=== PATIENT | female | born 1985 | race Caucasian/White ===

== ENCOUNTER → 2018-07-18 | Outpatient (CLI) | payer BC, OTHER ==
--- NOTE | 2018-07-18 18:22 | Diagnostic Imaging Report ---
EXAMINATION: Digital mammogram bilateral diagnostic with 3D tomosynthesis and computer-aided detection (CAD) system. INDICATION: Breast lump. COMPARISON: There are no prior studies available for comparison. This is the patient's baseline exam. FINDINGS: At this time, the patient does complain of a lump in the 12 o'clock position of the right breast. A marker was placed over the area of concern. There is no primary or secondary sign of malignancy noted. However, the fibroglandular tissue in the right breast is extremely dense and could mask a lesion. I would recommend that ultrasound be performed for further study. The fibroglandular tissue in the left breast is also quite dense. There is no primary or secondary sign of malignancy noted. IMPRESSION: There is no evidence of malignancy. Ultrasound would be recommended for further study, however. ACR BI-RADS Category 0: Incomplete. (Needs additional imaging evaluation). Result letter will be mailed to the patient. Note: At least 10% of breast cancer is not imaged by mammography. Dictated by: Dictated on workstation # [id number]
--- NOTE | 2018-07-18 18:27 | Diagnostic Imaging Report ---
EXAMINATION: Ultrasound of the right breast. INDICATION: Right breast mass. FINDINGS: The diagnostic mammogram performed earlier today failed to show any discrete mass in the area of the patient's palpable abnormality in the 12-1 o'clock position of the right breast. On this exam, however, there does appear to be a small 1.6 x 1.5 x 2.0 cm well-circumscribed solid lesion with internal vascularity. In a patient of this age, I suspect that this is a benign process such as a fibroadenoma. Even so, I would recommend that an ultrasound-guided biopsy be performed to establish a tissue diagnosis. No other abnormality is identified. IMPRESSION: 1. There is a small solid mass in the area of the patient's palpable abnormality. Most likely, this is a benign process such as a fibroadenoma. Recommendations as above. 2. These results were discussed with Keila Roman APRN at the time of this dictation. ACR BI-RADS Category 4: Suspicious abnormality. CRITICAL FINDING Dictated by: Dictated on workstation # [id number]
== END ==
LOC: RAD 09:07
PROVIDERS: ATTEND Nurse Practitioner Primary Care
DX: N63.10 Unspecified lump in the right breast, unspecified quadrant (principal)
CPT/HCPCS: 77066

== ENCOUNTER → 2018-07-30 | Outpatient (CLI) | payer BC, OTHER ==
[~2018-07-30] VITALS: Ht 157.5 cm; Wt 56.7 kg
[2018-07-30] MEDS: LIDOCAINE 1% INJ 20 ML 20 ML VIAL INJ ONE (11:13)
--- NOTE | 2018-07-30 11:58 | Diagnostic Imaging Report ---
INDICATION: Right breast mass. Patient presents for ultrasound guided biopsy. PROCEDURE: Patient was brought to the procedure room and placed on the table in the supine position. Ultrasound imaging of the right breast was performed to evaluate appropriate entry site. The right breast was then prepped and draped in usual sterile fashion. Small amount of 1% lidocaine was utilized for local anesthesia. A total of three core biopsies were made through the solid hypoechoic mass at the 12:30 location of the right breast, 2 cm from the nipple utilizing a 14-gauge Achieve needle. Next, a marker clip was deployed. Hemostasis was obtained using manual compression. Patient tolerated the procedure well and was sent for post procedure mammogram in satisfactory condition. IMPRESSION: Successful ultrasound-guided core biopsy of the solid mass at the 12:30 location of the right breast. Pathology results are currently pending. Dictated by: Dictated on workstation # [id number]
--- NOTE | 2018-07-30 13:38 | Diagnostic Imaging Report ---
INDICATION: Right breast mass, status post ultrasound-guided biopsy and clip placement. FINDINGS: Two view mammography demonstrates a clip in the upper aspect of the right breast at mid depth. The right breast is dense. No suspicious calcifications are seen. IMPRESSION: Clip placement. Pathology results are pending. Dictated by: Dictated on workstation # [id number]
== END ==
LOC: RAD 10:17
PROVIDERS: ATTEND Nurse Practitioner Primary Care
DX: D24.1 Benign neoplasm of right breast (principal); N63.10 Unspecified lump in the right breast, unspecified quadrant
CPT/HCPCS: 19083; 88305

== ENCOUNTER 2018-08-14 19:18 | Emergency (ER) | payer BC ==
[~2018-08-14] VITALS: Ht 167.6 cm; Wt 113.4 kg
[2018-08-14 19:57] LABS: BASOPHILS % (AUTO) 0 % (0-10); EOSINOPHILS # (AUTO) 0.2 10^3/uL (0.0-0.3); EOSINOPHILS % (AUTO) 2 % (0-10); HEMATOCRIT 40 % (35-52); HEMOGLOBIN 13.3 G/DL (11.5-16.0); LYMPHOCYTES % (AUTO) 32 % (12-44); MEAN CORPUSCULAR HEMOGLOBIN 28 PG (25-34); MEAN CORPUSCULAR HGB CONC 34 G/DL (32-36); MEAN CORPUSCULAR VOLUME 85 FL (80-99); MEAN PLATELET VOLUME 10.2 FL (7.4-10.4); MONOCYTES # (AUTO) 0.6 X 10^3 (0.0-1.0); MONOCYTES % (AUTO) 7 % (0-12); NEUTROPHILS # (AUTO) 5.5 X 10^3 (1.8-7.8); NEUTROPHILS % (AUTO) 58 % (42-75); PLATELET COUNT 326 10^3/uL (130-400); RED CELL DISTRIBUTION WIDTH 14.6 % (10.0-14.5); WHITE BLOOD COUNT 9.3 10^3/uL (4.3-11.0)
[2018-08-14 20:01] LABS: BILIRUBIN,URINE NEGATIVE (NEGATIVE); CLARITY,URINE SLIGHTLY CLOUDY; COLOR,URINE YELLOW; GLUCOSE, URINE (UA) NEGATIVE (NEGATIVE); KETONES,URINE NEGATIVE (NEGATIVE); LEUKOCYTE ESTERASE ,URINE 1+ (NEGATIVE); NITRITE,URINE NEGATIVE (NEGATIVE); PH,URINE 8 (5-9); PROTEIN,URINE NEGATIVE (NEGATIVE); UROBILINOGEN,URINE 1 MG/DL (NORMAL)
[2018-08-14 20:10] LABS: BACTERIA,URINE TRACE /HPF; WBC,URINE 0-2 /HPF
[2018-08-14 20:19] LABS: ALANINE AMINOTRANSFERASE 39 U/L (0-55); ALBUMIN 4.5 GM/DL (3.2-4.5); ALKALINE PHOSPHATASE 52 U/L (40-136); AMYLASE 35 U/L (25-125); BILIRUBIN,TOTAL 1.2 MG/DL (0.1-1.0); BUN/CREATININE RATIO 18; CALCIUM 9.1 MG/DL (8.5-10.1); CARBON DIOXIDE 20 MMOL/L (21-32); CHLORIDE 108 MMOL/L (98-107); CREATININE SERUM 0.71 MG/DL (0.60-1.30); GFR ESTIMATED > 60; GLUCOSE 90 MG/DL (70-105); LIPASE 34 U/L (8-78); POTASSIUM 4.1 MMOL/L (3.6-5.0); SODIUM 142 MMOL/L (135-145); TOTAL PROTEIN 8.1 GM/DL (6.4-8.2)
[2018-08-14] MEDS ORDERED: IOHEXOL 350 MG/ML 150 ML (OMNIPAQUE 350) VIAL IV ONE (20:45)
[2018-08-14] MEDS ORDERED: NS IV 1000 ML 1,000 ML IV SCH (20:45)
[2018-08-14] MEDS ORDERED: ONDANSETRON 4 MG/2 ML (SDV) Z0FRAN IVP ONE (20:45)
[2018-08-14] MEDS ORDERED: HOLD METFORMIN - RECEIVED CONTRAST 20 ML VIAL IV SCH (20:45)
--- NOTE | 2018-08-14 21:19 | Diagnostic Imaging Report ---
PROCEDURE: CT abdomen and pelvis with contrast. TECHNIQUE: Multiple contiguous axial images were obtained through the abdomen and pelvis after administration of intravenous contrast. Auto Exposure Controls were utilized during the CT exam to meet ALARA standards for radiation dose reduction. INDICATION: Left flank pain. FINDINGS: The lung bases are clear. Kidneys show no evidence of calculi. There is no hydronephrosis. There is symmetrical nephrogram effect following IV contrast. Delayed images show normal opacification of the renal collecting system. Both ureters appear normal. There is contrast in the bladder which appears normal and decompressed. There are no pelvic masses. Uterus appears normal. Ovaries are not enlarged. There is no free air or free fluid. The liver shows mild fatty change. Gallbladder and bile ducts are normal. The pancreas and spleen are normal. The adrenal glands are normal. There is good opacification of the aorta and abdominal vessels which appear normal. Stomach and small bowel are not distended. The colon shows normal stool and gas pattern. The appendix is normal. The terminal ileum is normal. No evidence of diverticulitis. No evidence of constipation or bowel obstruction. There are no bony lesions. There is noted a small periumbilical hernia just above the umbilicus containing some intra-abdominal fat. IMPRESSION: 1. Normal-appearing kidneys, ureter and bladder. 2. Bowel appears normal throughout. 3. There is a small periumbilical hernia just above the umbilicus containing some intra-abdominal fat. Dictated by: Dictated on workstation # [id number]
[2018-08-14] MEDS ORDERED: RX-HYOSCYAMINE 0.125 MG SL (LEVSIN) PPK#6 SL STA (21:32)
[2018-08-14] MEDS ORDERED: RX-ONDANSETRON 4 MG ODT (ZOFRAN) PPK #4 PO STA (21:32)
[2018-08-14] MEDS ORDERED: ONDA4TAB11 PO (21:38)
[2018-08-14] MEDS ORDERED: HYOS0.1283 SL (21:38)
--- NOTE | 2018-08-14 21:38 | ED Abdominal Pain ---
General Chief Complaint: Abdominal/GI Problems Stated Complaint: PAIN IN ABD,VOMITTING,BLOOD IN STOOL Nursing Triage Note: PT ARRIVED POV WITH C/O LEFT SIDE ABD PAIN X3 DAYS. TODAY PAIN IS MUCH MORE SEVERE WITH VOMITING. PT HAS HX OF ECTOPIC PREGNACY. PT ALSO C/O BLOOD IN STOOL Sepsis Screen: No Definite Risk Source of Information: Patient Exam Limitations: No Limitations History of Present Illness Date Seen by Provider: Aug 14, 2018 Time Seen by Provider: 19:30 Initial Comments 29-year-old female who presents to the emergency room with complaints of abdominal cramping to the left lower quadrant area, nausea, vomiting, diarrhea for the past 3 days. She's also had small amounts of blood in her stool for the past 2 days. Reports chills but is unsure if she's ran a fever. Allergies and Home Medications Allergies Coded Allergies: Penicillins (Verified Allergy, Unknown, 07/30/18) Home Medications Hyoscyamine Sulfate 0.125 Mg Tab.subl, 0.125 MG SL Q4H Prescribed by: LUDY GUTIERREZ on 08/14/182137 Ondansetron 4 Mg Tab.rapdis, 4 MG PO Q4H Prescribed by: LUDY GUTIERREZ on 08/14/182137 Past Uxitdem-Iximld-Wjqvcw Hx Patient Social History Alcohol Use: Denies Use Recreational Drug Use: No Smoking Status: Never a Smoker 2nd Hand Smoke Exposure: No Recent Foreign Travel: No Contact w/Someone Who Travel: No Recent Infectious Disease Expo: No Recent Hopitalizations: No Seasonal Allergies Seasonal Allergies: No Past Medical History Surgeries: Yes (D&C) Tonsillectomy Respiratory: No Cardiac: No Neurological: No Hx : 3 Hx Para: 2 Hx Total # of Abortions (Sp): 1 Sexually Transmitted Disease: No Genitourinary: No Gastrointestinal: No Musculoskeletal: No Endocrine: Yes Hypothyroidsim HEENT: No Cancer: No Psychosocial: No Integumentary: No Blood Disorders: Yes (ANEMIA) Adverse Reaction/Blood Tranf: No Physical Exam Vital Signs Vital Signs - First Documented 08/14/18 08/14/18 19:24 22:08 Temp 98.7 Pulse 85 Resp 20 B/P (MAP) 109/66 (80) Pulse Ox 99 O2 Delivery Room Air Capillary Refill : Less Than 3 Seconds Height/Weight/BMI Height: 5'6.00" Weight: 250lbs. 0.0oz. 113.479627um; 22.9 BMI Method:Stated Progress/Results/Core Measures Results/Orders Lab Results Laboratory Tests Test 08/14/18 19:47 08/14/18 19:55 Range/Units White Blood Count 9.3 4.3-11.0 10^3/uL Red Blood Count 4.68 4.35-5.85 10^6/uL Hemoglobin 13.3 11.5-16.0 G/DL Hematocrit 40 35-52 % Mean Corpuscular Volume 85 80-99 FL Mean Corpuscular Hemoglobin 28 25-34 PG Mean Corpuscular Hemoglobin Concent 34 32-36 G/DL Red Cell Distribution Width 14.6 H 10.0-14.5 % Platelet Count 326 130-400 10^3/uL Mean Platelet Volume 10.2 7.4-10.4 FL Neutrophils (%) (Auto) 58 42-75 % Lymphocytes (%) (Auto) 32 12-44 % Monocytes (%) (Auto) 7 0-12 % Eosinophils (%) (Auto) 2 0-10 % Basophils (%) (Auto) 0 0-10 % Neutrophils # (Auto) 5.5 1.8-7.8 X 10^3 Lymphocytes # (Auto) 3.0 1.0-4.0 X 10^3 Monocytes # (Auto) 0.6 0.0-1.0 X 10^3 Eosinophils # (Auto) 0.2 0.0-0.3 10^3/uL Basophils # (Auto) 0.0 0.0-0.1 10^3/uL Sodium Level 142 135-145 MMOL/L Potassium Level 4.1 3.6-5.0 MMOL/L Chloride Level 108 H 98-107 MMOL/L Carbon Dioxide Level 20 L 21-32 MMOL/L Anion Gap 14 5-14 MMOL/L Blood Urea Nitrogen 13 7-18 MG/DL Creatinine 0.71 0.60-1.30 MG/DL Estimat Glomerular Filtration Rate > 60 BUN/Creatinine Ratio 18 Glucose Level 90 70-105 MG/DL Calcium Level 9.1 8.5-10.1 MG/DL Corrected Calcium 8.7 8.5-10.1 MG/DL Total Bilirubin 1.2 H 0.1-1.0 MG/DL Aspartate Amino Transf (AST/SGOT) 39 H 5-34 U/L Alanine Aminotransferase (ALT/SGPT) 39 0-55 U/L Alkaline Phosphatase 52 40-136 U/L Total Protein 8.1 6.4-8.2 GM/DL Albumin 4.5 3.2-4.5 GM/DL Amylase Level 35 25-125 U/L Lipase 34 8-78 U/L Urine Color YELLOW Urine Clarity SLIGHTLY CLOUDY Urine pH 8 5-9 Urine Specific [place] 1.015 L 1.016-1.022 Urine Protein NEGATIVE NEGATIVE Urine Glucose (UA) NEGATIVE NEGATIVE Urine Ketones NEGATIVE NEGATIVE Urine Nitrite NEGATIVE NEGATIVE Urine Bilirubin NEGATIVE NEGATIVE Urine Urobilinogen 1 NORMAL MG/DL Urine Leukocyte Esterase 1+ H NEGATIVE Urine RBC (Auto) NEGATIVE NEGATIVE Urine RBC NONE /HPF Urine WBC 0-2 /HPF Urine Squamous Epithelial Cells 5-10 /HPF Urine Crystals NONE /LPF Urine Bacteria TRACE /HPF Urine Casts NONE /LPF Urine Mucus LARGE H /LPF Urine Culture Indicated NO Urine Test NEGATIVE NEGATIVE My Orders Orders - LUDY GUTIERREZ Ua Culture If Indicated (08/14/18 19:25) Hcg,Qualitative Urine (08/14/18 19:34) Comprehensive Metabolic Panel (08/14/18 19:34) Lipase (08/14/18 19:34) Amylase (08/14/18 19:34) Saline Lock/Iv-Start (08/14/18 19:34) Cbc With Automated Diff (08/14/18 19:34) Ct Abdomen/Pelvis W (08/14/18 20:30) Ondansetron Injection (Zofran Injectio (08/14/18 20:45) Ns Iv 1000 Ml (Sodium Chloride 0.9%) (08/14/18 20:45) Iohexol Injection (Omnipaque 350 Mg/Ml 1 (08/14/18 20:45) Received Contrast (Hold Metformin- Contr (08/14/18 20:45) Rx-Hyoscyamine Tab (Rx-Levsin Sl) (08/14/18 21:32) Rx-Ondansetron Po (Rx-Zofran Po) (08/14/18 21:32) Medications Given in ED Vital Signs/I&O 08/14/18 08/14/18 19:24 22:08 Temp 98.7 98.7 Pulse 85 86 Resp 20 17 B/P (MAP) 109/66 (80) Pulse Ox 99 99 O2 Delivery Room Air Room Air Departure Impression Primary Impression: Nausea vomiting and diarrhea Disposition: 01 HOME, SELF-CARE Condition: Stable/Unchanged Departure-Patient Inst. Decision time for Depature: 21:35 Referrals: [facility] (PCP) Primary Care Physician GILBERT RUSSELL APRN (Family) Primary Care Physician Patient Instructions: [id number] Add. Discharge Instructions: Take medication as directed. Clear liquid diet for 48 hours and advance to a bland diet as tolerated. Keep your appointment as scheduled with your primary care provider to follow-up, if your symptoms should resolve you can cancel it. Return back to the emergency room for worsening symptoms or concerns as needed. All discharge instructions reviewed with patient and/or family. Voiced understanding. Scripts Hyoscyamine Sulfate (Levsin-Sl) 0.125 Mg Tab.subl 0.125 MG SL Q4H, #14 TAB Prov: LUDY GUTIERREZ 08/14/18 Ondansetron (Ondansetron Odt) 4 Mg Tab.rapdis 4 MG PO Q4H, #14 TAB Prov: LUDY GUTIERREZ 08/14/18 LUDY GUTIERREZ Aug 14, 2018 21:38
[2018-08-14 22:08] VITALS: BP 109/66
== END 2018-08-14 22:08 | disposition home or self-care (01) ==
LOC: EDUNIT# 19:18 → EDBD 19:20 → ER 19:20
DX: R11.2 Nausea with vomiting, unspecified (principal); R19.7 Diarrhea, unspecified; E03.9 Hypothyroidism, unspecified; D64.9 Anemia, unspecified; Z88.0 Allergy status to penicillin; Z90.89 Acquired absence of other organs
CPT/HCPCS: 36415; 74177; 80053; 81000; 82150; 83690; 84703; 85025

== ENCOUNTER 2018-10-31 11:51 | Emergency (ER) | payer BC, OTHER ==
[~2018-10-31] VITALS: Ht 154.9 cm; Wt 56.7 kg
[~2018-10-31 11:51] MED LIST: HYOS0.1283 SL; ONDA4TAB11 PO
[2018-10-31] MEDS ORDERED: CLOB15CR2 TP (11:57)
--- NOTE | 2018-10-31 11:57 | ED Integumentary General ---
General Stated Complaint: POISON JOLIE SHOT Source: patient Exam Limitations: no limitations History of Present Illness Date Seen by Provider: Oct 31, 2018 Time Seen by Provider: 11:53 Initial Comments to ER with poison jolie to the volar surface of the right wrist, new Lesions popping up every day to the left arm and right leg. This began one week ago. Timing/Duration: week, getting worse Severity: moderate Associated Symptoms: other (itching) Allergies and Home Medications Allergies Coded Allergies: Penicillins (Verified Allergy, Unknown, 07/30/18) Home Medications Hyoscyamine Sulfate 0.125 Mg Tab.subl, 0.125 MG SL Q4H Prescribed by: LUDY GUTIERREZ on 08/14/182137 Ondansetron 4 Mg Tab.rapdis, 4 MG PO Q4H Prescribed by: LUDY GUTIREREZ on 08/14/182137 Patient Home Medication List Home Medication List Reviewed: Yes Review of Systems Review of Systems Constitutional: see HPI EENTM: see HPI Respiratory: no symptoms reported Cardiovascular: no symptoms reported Genitourinary: no symptoms reported Musculoskeletal: no symptoms reported Skin: see HPI Psychiatric/Neurological: No Symptoms Reported Endocrine: No Symptoms Reported Past Qyhnsiw-Rkbuhc-Nqhiot Hx Patient Social History Recent Foreign Travel: No Contact w/Someone Who Travel: No Physical Exam Vital Signs Capillary Refill : General Appearance: WD/WN, no apparent distress HEENT: PERRL/EOMI, normal ENT inspection Neck: non-tender, full range of motion Respiratory: no respiratory distress, no accessory muscle use Neurologic/Psychiatric: alert, normal mood/affect, oriented x 3 Skin: normal color, warm/dry Skin Problem Character: other (erythematous elevated patch to the right volar wrist with some unruptured and ruptured vesicles to this area, several smaller linear papulovesicular lesions that are erythematous and pruritic to the volar surface of the left forearm) Departure Impression Primary Impression: Rhus dermatitis Disposition: 01 HOME, SELF-CARE Condition: Stable Departure-Patient Inst. Decision time for Depature: 11:55 [facility]errals: [facility] [place] Primary Care Physician GILBERT RUSSELL APRN (Family) Primary Care Physician Patient Instructions: Dermatitis, Poison Jolie Add. Discharge Instructions: 1. Applied the topical steroid twice daily for 5 days to the lesions. Return to ER for any concerns. Benadryl may help make you sleepy at bedtime which will make it easier to ignore the itching. Scripts Clobetasol Propionate (Clobetasol Propionate) 15 Gm Cream..g. 15 GM TP BID for 5 Days, #1 TUBE Apply to the poison jolie lesions twice daily for 5 days Prov: CASEY ZAMBRANO APRN 10/31/18 CASEY ZAMBRANO APRN Oct 31, 2018 11:57
[2018-10-31] MEDS ORDERED: TRIAMCINOLONE ACET (KENALOG-40) 40 MG/ML 1 ML VIAL IM ONE (12:00)
[2018-10-31] MEDS ORDERED: BETAMETHASONE ACE/NA PHOS 6 MG/ML (CELESTONE SOLUSPAN) IM ONE (12:00)
[2018-10-31 12:15] VITALS: BP 126/84
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
== END 2018-10-31 12:15 | disposition home or self-care (01) ==
LOC: EDUNIT# 11:51 → ER 11:52
DX: L23.7 Allergic contact dermatitis due to plants, except food (principal); Z88.0 Allergy status to penicillin
CPT/HCPCS: 96372; 99284

== ENCOUNTER 2020-02-10 12:34 | Emergency (ER) | payer BC, OTHER ==
[~2020-02-10] VITALS: Ht 158 cm; Wt 58.9 kg
[~2020-02-10 12:34] MED LIST changes: +CLOB15CR2 TP
--- NOTE | 2020-02-10 13:17 | ED Neurological Problem ---
General Chief Complaint: Upper Extremity Stated Complaint: NUMBNESS/TINGLING R ARM Nursing Triage Note: PT REPORTS INTERMITTENT TINGLING/BURING SINCE DAY WEEKEND. PT REPORTS SHE WAS SITTING AT HER DESK TYPING AND NOTICED HER HAND WAS NUMB AND TINGLY AND IT WAS DIFFICULTY TO TYPE. PT ALSO REPORTS NECK PAIN FOR A FEW WEEKS. Nursing Sepsis Screen: No Definite Risk Source: patient Exam Limitations: no limitations History of Present Illness Date Seen by Provider: Feb 10, 2020 Time Seen by Provider: 12:35 Initial Comments This 34-year-old woman presents to the emergency room with complaints of numbness, tingling, and weakness of her right upper extremity. This was first noticed nearly 3 weeks ago in her hand. It has since progressed up the extremity and now today involves the shoulder and right lateral neck. She has weakness measurable on exam throughout the right upper extremity. She has no other neurologic symptoms. She was seen at the [facility] walk-in clinic a few days ago and started on prednisone which has not improved her symptoms. She denies any injury. She has had no prior episodes. Allergies and Home Medications Allergies Coded Allergies: Penicillins (Verified Allergy, Unknown, 07/30/18) Home Medications Clobetasol Propionate 15 Gm Cream..g., 15 GM TP BID Apply to the poison naida lesions twice daily for 5 days Prescribed by: CASEY ZAMBRANO on 10/31/18 1157 Gabapentin 300 Mg Capsule, 300 MG PO TID PRN for PAIN-BREAKTHROUGH Prescribed by: CHERISE HAND on 02/10/20 1518 Hyoscyamine Sulfate 0.125 Mg Tab.subl, 0.125 MG SL Q4H Prescribed by: LUDY GUTIERREZ on 08/14/182137 Ondansetron 4 Mg Tab.rapdis, 4 MG PO Q4H Prescribed by: LUDY GUTIERREZ on 08/14/182137 Patient Home Medication List Home Medication List Reviewed: Yes Review of Systems Review of Systems Constitutional: no symptoms reported Eyes: No Symptoms Reported Ears, Nose, Mouth, Throat: no symptoms reported Respiratory: no symptoms reported Cardiovascular: no symptoms reported Gastrointestinal: no symptoms reported Genitourinary: no symptoms reported : No Musculoskeletal: see HPI Past Tmxedbv-Pkkuyn-Ttpnsd Hx Past Med/Social Hx: Reviewed Nursing Past Med/Soc Hx Patient Social History Alcohol Use: Occasionally Uses Recreational Drug Use: No Smoking Status: Never a Smoker 2nd Hand Smoke Exposure: No Recent Foreign Travel: No Contact w/Someone Who Travel: No Recent Infectious Disease Expo: No Recent Hopitalizations: No Physical Abuse: No Sexual Abuse: No Mistreated: No Fear: No Immunizations Up To Date PED Vaccines UTD: Yes Seasonal Allergies Seasonal Allergies: No Past Medical History Surgeries: Yes Adenoidectomy, Appendectomy, Tonsillectomy Respiratory: No Cardiac: No Neurological: No Genitourinary: No Gastrointestinal: No Musculoskeletal: No Endocrine: No HEENT: No Cancer: No Psychosocial: No Integumentary: No Blood Disorders: No Physical Exam Vital Signs Vital Signs - First Documented 02/10/20 12:37 Temp 36.5 Pulse 92 Resp 20 B/P (MAP) 135/85 (102) Pulse Ox 98 Capillary Refill : Less Than 3 Seconds Height, Weight, BMI Height: 5'1.00" Weight: 125lbs. 0.0oz. 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, alert, normal mood/affect, oriented x 3, motor weakness (4/5 weakness throughout the right upper extremity.) Crainal Nerves: normal hearing, normal speech, PERRL, abnormal eye position Coordination/Gait: normal finger to nose, normal gait Skin: normal color, warm/dry Progress/Results/Core Measures Results/Orders My Orders Orders - CHERISE JONES MD Mri Brain W/O Contrast (02/10/20 12:55) Mri Cervical Spine W/O Contras (02/10/20 12:55) Vital Signs/I&O 02/10/20 02/10/20 12:37 15:25 Temp 36.5 Pulse 92 87 Resp 20 18 B/P (MAP) 135/85 (102) 123/70 Pulse Ox 98 98 Blood Pressure Mean: 102 Progress Progress Note : Progress Note Patient was seen and examined. She was noted to have measurable weakness throughout the musculature of the right upper extremity. MRI of the head and cervical spine was obtained. There is a tiny punctate lesion in the cervical spine but no other abnormalities were found. The significance of this is uncertain. Case was discussed with Dr. Oh. Further workup is warranted in the outpatient setting which might include EMG and neurology referral. In the meantime, patient is being prescribed Neurontin for pain management. I reviewed the case with Dr. Dawn who will help facilitate expediting outpatient workup. Patient has a follow-up appointment on Monday. Diagnostic Imaging Diagonstic Imaging: MRI Plain Films/CT/US/NM/MRI: head Comments NAME: TRUONG PULIDO [facility] REC#: [id number] PT STATUS: DEP ER : 1985 PHYSICIAN: CHERISE JONES MD ADMIT DATE: 02/10/20/ER Signed Date of Exam:02/10/20 MRI BRAIN W/O CONTRAST PROCEDURE: MR imaging of the brain without contrast. TECHNIQUE: Multiplanar, multisequence MR imaging of the brain was performed without contrast. INDICATION: Right arm weakness and paresthesia. FINDINGS: The ventricles and sulci are within normal limits for size. The douglas and white matter signal intensities are unremarkable. There is no abnormal mass effect or shift of the midline structures. There is no restricted diffusion to indicate an infarct. Flow voids are seen in the expected locations at the skull base. There is no MRI evidence of hemorrhage. The visualized paranasal sinuses are clear. IMPRESSION: Unremarkable MRI of the brain. Dictated by: Dictated on workstation # [id number] Dict: 02/10/20 1333 Trans: 02/10/20 1609 [id number] Interpreted by: MARLENE CHRISTIANSEN MD Electronically signed by: MARLENE CHRISTIANSEN MD 02/10/20 1609 Diagonstic Imaging: MRI Plain Films/CT/US/NM/MRI: c-spine Comments NAME: TRUONG PULIDO [facility] REC#: [id number] PT STATUS: DEP ER : 1985 PHYSICIAN: CHERISE JONES MD ADMIT DATE: 02/10/20/ER Signed Date of Exam:02/10/20 MRI CERVICAL SPINE W/O CONTRAS PROCEDURE: MR imaging cervical spine without contrast. TECHNIQUE: Multiplanar, multisequence MR imaging of the cervical spine was performed without contrast. INDICATION: Right arm weakness and numbness. COMPARISON: No prior studies are available for comparison. FINDINGS: There is normal alignment to the cervical spine. Vertebral body marrow signal is unremarkable. The cervical discs demonstrate fairly normal height and signal intensity. No focal disc protrusion, central canal or neural foraminal narrowing is seen. The cervical spinal cord shows fairly homogeneous signal intensity. There is a very small area of minimal increased T2 signal within the cord at the C4 level, indeterminate. It is uncertain if this is artifactual versus real. No abnormal widening or thinning of the cervical cord is identified. Craniocervical junction is unremarkable. IMPRESSION: Essentially unremarkable MRI of the cervical spine apart from tiny area of increased T2 signal within the cervical cord at the C4 level. This could represent a small area of demyelination or myelomalacia. No canal stenosis or other abnormality is identified. Dictated by: Dictated on workstation # [id number] Dict: 02/10/20 1350 Trans: 02/10/20 1550 [facility] [id number] Interpreted by: KALI OH MD Electronically signed by: KALI OH MD 02/10/20 1550 Departure Impression Primary Impression: Paresthesia of right upper extremity Additional Impressions: Right upper limb pain Right arm weakness Disposition: 01 HOME, SELF-CARE Condition: Stable Departure-Patient Inst. Decision time for Depature: 15:15 Referrals: [facility]/ (PCP) Primary Care Physician GILBERT RUSSELL APRN (Family) Primary Care Physician Patient Instructions: Electromyography, Paresthesia (DC) Add. Discharge Instructions: Keep your appointment at [facility] on Monday. In the meantime you may try gabapentin for pain that is not relieved by [id number]-[id number] medications. Please be advised this medication may make you sleepy. Do not drive or operate machinery while on it. Return to care if you have advancing symptoms that extend beyond your right upper extremity or become severe. All discharge instructions reviewed with patient and/or family. Voiced understanding. Scripts Gabapentin (Neurontin) 300 Mg Capsule 300 MG PO TID PRN for PAIN-BREAKTHROUGH, #20 CAP Prov: CHERISE JONES MD 02/10/20 Copy Copies To 1: JUAN DAWN JOSHUA T MD Feb 10, 2020 13:17
--- NOTE | 2020-02-10 13:36 | Diagnostic Imaging Report ---
PROCEDURE: MR imaging of the brain without contrast. TECHNIQUE: Multiplanar, multisequence MR imaging of the brain was performed without contrast. INDICATION: Right arm weakness and paresthesia. FINDINGS: The ventricles and sulci are within normal limits for size. The douglas and white matter signal intensities are unremarkable. There is no abnormal mass effect or shift of the midline structures. There is no restricted diffusion to indicate an infarct. Flow voids are seen in the expected locations at the skull base. There is no MRI evidence of hemorrhage. The visualized paranasal sinuses are clear. IMPRESSION: Unremarkable MRI of the brain. Dictated by: Dictated on workstation # [id number]
--- NOTE | 2020-02-10 14:04 | Diagnostic Imaging Report ---
PROCEDURE: MR imaging cervical spine without contrast. TECHNIQUE: Multiplanar, multisequence MR imaging of the cervical spine was performed without contrast. INDICATION: Right arm weakness and numbness. COMPARISON: No prior studies are available for comparison. FINDINGS: There is normal alignment to the cervical spine. Vertebral body marrow signal is unremarkable. The cervical discs demonstrate fairly normal height and signal intensity. No focal disc protrusion, central canal or neural foraminal narrowing is seen. The cervical spinal cord shows fairly homogeneous signal intensity. There is a very small area of minimal increased T2 signal within the cord at the C4 level, indeterminate. It is uncertain if this is artifactual versus real. No abnormal widening or thinning of the cervical cord is identified. Craniocervical junction is unremarkable. IMPRESSION: Essentially unremarkable MRI of the cervical spine apart from tiny area of increased T2 signal within the cervical cord at the C4 level. This could represent a small area of demyelination or myelomalacia. No canal stenosis or other abnormality is identified. Dictated by: Dictated on workstation # [id number]
[2020-02-10] MEDS ORDERED: GABA300C PO (15:18)
[2020-02-10 15:25] VITALS: BP 123/70
== END 2020-02-10 15:25 | disposition home or self-care (01) ==
LOC: EDUNIT# 12:34 → ER 12:35
DX: R20.2 Paresthesia of skin (principal); M79.621 Pain in right upper arm; R53.1 Weakness; Z88.0 Allergy status to penicillin
CPT/HCPCS: 70551; 72141